=== PATIENT | female | born 1935 | race Caucasian/White ===

== ENCOUNTER 2021-01-18 08:34 | Outpatient (CLI) | payer MEDICARE, SELFPAY ==
--- NOTE | ~2021-01-18 | CT_ITS ---
EXAMINATION: CT LE RT wo con DATE: 01/18/2021 09:20 INDICATION: Bilateral primary osteoarthritis of the right knee. TECHNIQUE: High resolution computed tomography (CT) of the right lower limb from the hip through the foot was performed without intravenous contrast. Additional sagittal and coronal reconstructions were performed utilizing Conformis protocol. Automated exposure control and iterative reconstruction tech nique were employed. The dose-length product was 1436.30 mGy-cm. COMPARISON: None FINDINGS: Bone alignment is normal throughout. No fractures. Polyarticular osteoarthritis at the right knee wit h medial compartment predominance where there is moderate to severe joint space narrowing which is li zohra underestimated due to nonweightbearing imaging. There is remodeling at the central to medial asp ect of the medial tibial plateau and with subarticular sclerosis along both sides. Joint space. Small to moderate-sized marginal ossified comparison the lateral and patellofemoral compartments. Small ri ght knee joint effusion. Mild right hip osteoarthritis. Right ankle joint space appears normal. Minim al osteoarthritis at a few of the joints in the right mid and hindfoot. Small plantar calcaneal spur. Mild scattered atherosclerotic calcifications in the arteries of the right upper and lower legs. IMPRESSION: 1. Severe medial compartment predominant osteoarthritis at the right knee. Reviewed, dictated and finalized at location A.
--- NOTE | 2021-01-18 10:04 | ECG_ITS ---
Measurements Intervals [place] Rate: 63 P: 12 VT: 192 QRS: 44 QRSD: 78 T: 68 QT: 387 QTc: 397 Interpretive Statements SINUS RHYTHM BORDERLINE ST ABNORMALITY- ANTERIOR LEADS BASELINE ARTIFACT- V1 BORDERLINE ECG Electronically Signed On 01-18-2021 10:11:18 CDT by Solomon Lopez D.O.
[2021-01-18 10:11] LABS: Hematocrit 40.4 % (37.0-47.0); Hemoglobin 13.2 g/dL (12.0-15.0)
[2021-01-18 10:28] LABS: Albumin Level 4.4 g/dL (3.5-5.1)
[2021-01-19 09:30] LABS: Estimated Glomerular Filt Rate 47; Glucose 108 mg/dL (65-110)
[2021-01-19 10:25] LABS: Hemoglobin A1C 5.6 % (<5.7)
== END 2021-01-18 08:35 | disposition home or self-care (01) ==
PROVIDERS: PCP Nurse Practitioner Family; Visit Provider Orthopaedic Surgery
DX: M17.11 Unilateral primary osteoarthritis, right knee (principal); R94.31 Abnormal electrocardiogram [ECG] [EKG]
CPT/HCPCS: 36415; 73700; 82040; 82565; 82947; 83036; 85014; 85018; 93005

== ENCOUNTER 2021-03-10 13:43 | Outpatient (CLI) | payer MEDICARE, SELFPAY ==
[2021-03-10 15:09] LABS: Basophils Absolute Auto 0.1 K/mm3 (0.0-0.1); Basophils Percent Auto 0.6 % (0.2-1.2); Eosinophils Absolute Auto 0.1 K/mm3 (0-0.3); Eosinophils Percent Auto 0.7 % (0-4.4); Hematocrit 41.3 % (37.0-47.0); Hemoglobin 13.7 g/dL (12.0-15.0); Immature Granulocyte Absolute 0.02 K/mm3 (0.00-0.031); Immature Granulocyte Percent A 0.2 % (0-0.5); Lymphocytes Absolute Auto 2.24 K/mm3 (0.9-3.2); Lymphocytes Percent Auto 26.1 % (18.3-44.2); Mean Corpuscular HGB Conc 33.2 g/dl (32-36); Mean Corpuscular Hemoglobin 30.6 pg (26-34); Mean Corpuscular Volume 92.2 fl (80-100); Mean Platelet Volume 9.8 fl (7.4-10.4); Monocytes Absolute Auto 0.6 K/mm3 (0.1-0.6); Monocytes Percent Auto 7.2 % (2.6-8.5); Neutrophils Absolute Auto 5.6 K/mm3 (1.3-6.7); Neutrophils Percent Auto 65.2 % (45.5-73.1); Platelet Count Result 268 k/mm3 (150-375); Red Blood Count 4.48 M/mm3 (4.2-5.4); Red Cell Distribution Width 13.6 % (11.5-14.5); White Blood Count 8.6 K/mm3 (4.5-10.0)
[2021-03-10 15:18] LABS: Albumin Level 4.3 g/dL (3.5-5.1)
[2021-03-10 15:20] LABS: Anion Gap 7 mmol/L (8-16); Blood Urea Nitrogen 20 mg/dL (7-17); Calcium 10.2 mg/dL (8.4-10.2); Carbon Dioxide 30 mmol/L (22-30); Chloride 102 mmol/L (98-107); Estimated Glomerular Filt Rate 43; Glucose 105 mg/dL (65-110); Potassium 3.7 mmol/L (3.4-5.0); Sodium 139 mmol/L (137-145)
[2021-03-10 15:30] LABS: INR 0.9; Prothrombin Time 12.2 Seconds (11.1-14.7)
[2021-03-10 15:31] LABS: Partial Thromboplastin Time 27.1 SECONDS (22.3-36.8)
[2021-03-10 19:21] LABS: Urine Cotinine NEGATIVE
== END 2021-03-10 13:44 | disposition home or self-care (01) ==
LOC: ANHSURGERY 13:47
PROVIDERS: Anesthesiology; PCP Nurse Practitioner Family; Visit Provider Orthopaedic Surgery
DX: M17.11 Unilateral primary osteoarthritis, right knee (principal); N18.30 Chronic kidney disease, stage 3 unspecified; Z79.899 Other long term (current) drug therapy; Z01.818 Encounter for other preprocedural examination
CPT/HCPCS: 36415; 80048; 80307; 82040; 85025; 85610; 85730; 87081

== ENCOUNTER 2021-04-08 01:27 | Day surgery (SDC) | payer MEDICARE, SELFPAY ==
[2021-03-10 13:55] VITALS: BMI 33.5
[2021-03-10 14:05] VITALS: BP 186/50; PULSE 76; RESP 16; TEMP 36.9; O2SAT 100
--- NOTE | 2021-03-10 14:14 | PC.NURSE ---
Report to the Outpatient Waiting Room, entrance under the green pavilion located off [facility], at time __0600__ on date 04-08-2021_. OR Time: __729_. - You and your visitor will be asked a series of questions to screen for COVID 19 for your protection. - A mask is required within the hospital. - Only one visitor is allowed at this time. Patient visitors will be guided where to wait when not with patient. Preoperative COVID Testing Requirements: No COVID Test needed if: (proof is required; if not received patient will have Rapid Test prior to entry) - Patient has received COVID Vaccine at least 14 days prior to procedure date or - Patient has positive COVID test result within last 90 days of surgery date. COVID Test needed if above criteria is not met If not COVID vaccinated a COVID test must be conducted within 72 hours of surgery and patient is asked to isolate self from time of testing until procedure. You will go to the [employer] [facility] for your COVID testing. The [employer] [facility] site is located at the corner of [address] [facility]. You will only be called if COVID results are positive and your surgeon may reschedule your elective surgery date. Patients may have clear liquids (water, carbonated beverages, clear teas, apple juice) until 3 hours prior to surgery with a maximum of 20 ounces. - No food from midnight until time of surgery - Infants may have breast milk until 4 hours before surgery, infant formula 6 hours prior to surgery. - Children will be allowed to drink immediately following surgery. If applicable, please bring a bottle or sippy cup to assist with drinking. Juice, water, soda, and popsicles are readily available. For infants on formula, please bring formula the day of surgery. Pacifiers are allowed. Take the following medications with a SIP of water the morning of surgery: Medications to discontinue per physician __Stop all vitamins and supplements 04-05-2021.____Stop Asprin [id number] Date to take last dose Please no make-up, nail arabic, hairspray, perfume, deodorant, or body powder the day of surgery. No jewelry (including any body piercings) or valuables the day of surgery, leave them at home. Please take a shower or bath the night before, or the morning of, surgery with an antibacterial soap. Wear comfortable, loose fitting clothing. Children are encouraged to wear pajamas. - Jewelry must be removed prior to entering the operating room. Rings and piercings that are not removed may be cut off. - The hospital will not accept responsibility for valuables. - Please leave all valuables, including medications, at home the day of surgery. If you are going home after surgery, a licensed set key driver must drive you home. - NO public transportation without another adult. - We recommend that an adult stay with you for 24 hours following discharge. - We also recommend that you do not drive, make important decision, drink alcoholic beverages, or take any drugs that were not prescribed by your health care provider for at least 24 hours after your discharge time. For Pediatric surgeries, we recommend two adults accompany the child home (only one inside the building at this time). Follow any additional instructions given to you from your surgeon. Telephone instructions given to __Patient__and asked if any additional questions and then verbalized understanding. Patient advised to call surgeon office or pre surgery nurse liaison [phone] if any additional questions.
--- NOTE | 2021-04-07 14:59 | WPDANESEPPF ---
Anes - Initial Pre Proc Eval Procedure: Operation Date: 04/08/21 07:30 Proposed Procedures p Right Custom Total Knee Arthroplasty - Hu Villareal MD Date/Time: 04/07/21 14:59 Surgeon: Hu Villareal MD Pre Op Diagnosis: Adry Jansen Right Knee Patient Data Age: 85 Gender: F Height: 1.5 m Weight: 75.4 kg Last Vital Signs Temp 36.9 C 03/10/21 14:05 Pulse 76 03/10/21 14:05 Resp 16 03/10/21 14:05 BP 186/50 H 03/10/21 14:05 Pulse Ox 100 03/10/21 14:05 Allergies Allergy/AdvReac Type Severity Reaction Status Date / Time No Known Allergies Verified 03/10/21 13:58 Home Medications Medication Instructions Recorded Confirmed Type aspirin 81 mg tablet,delayed 81 mg PO DAILY 09/24/20 03/10/21 History release calcium carbonate 600 mg calcium 600 mg PO DAILY 09/24/20 03/10/21 History (1,500 mg) tablet hydrochlorothiazide 50 mg tablet 25 mg PO DAILY 09/24/20 03/10/21 History cholecalciferol (vitamin D3) 125 125 mcg PO DAILY 11/02/20 03/10/21 History mcg (5,000 unit) capsule Patient hx anesthesia problems: none Family hx anesthesia problems: none Results Review: All pre-operative results and documents have been reviewed as part of the pre-operative evaluation. [facility] Past Medical History Medical History (Updated 04/07/21 @ 15:00 by Steve Urias DO) Chronic kidney disease, stage 3 HTN (hypertension), benign Surgical History Surgical History (Updated 11/02/20 @ 08:43 by Eva Alcazar) History of cholecystectomy (~2005) History of hysterectomy (~1977) Social History Social History (Updated 09/24/20 @ 15:48 by Gabby Tran, RT(R)) Smoking status: Never smoker Alcohol intake: never Living arrangements: alone Spiritual care concerns: No Anes - Eval Final PreProcedure Day of Procedure 04/07/21 14:59 Patient weight: obese Heart: regular rate and rhythm Lungs: clear to auscultation and normal air movement Airway: Mallampati scale class II Neurological: alert and oriented Last oral intake: >/= 8 hours ASA classification: III Emergent: no Anesthetic plan: proceed Anesthesia type and monitoring: general LMA and standard monitoring Results Review: All pre-operative results and documents have been reviewed as part of the pre-operative evaluation. Informed Consent: The patient's anesthetic plan and its attendant risks and benefits were discussed with the patient/family/POA. Questions were solicited and answers provided to the satisfaction of the patient/family/POA.
--- NOTE | 2021-04-07 15:01 | WPDANESPNB ---
Anes - Peripheral Nerve Block Date/Time: 04/07/21 15:01 I have discussed with the patient/family/POA the placement of a peripheral nerve block for post-operative pain management, including associated risks, benefits, complications, and side effects. Alternative methods of post-operative analgesia were detailed. Questions were solicited and answers provided to the satisfaction of the patient/family/POA. Time-Out: A pre-procedural Time-Out was completed immediately before starting the procedure and confirmed: Patient Identification, Site, Procedure, Patient Position and the Availability of Requisite Equipment. Clinical Indications: Acute post-operative pain management requested by the operative surgeon. Nerve Block Insertion Note Anes-nerve block: adductor canal right Patient position: supine Skin prep: chlorhexidine Needle: 22 gauge, stimulating, insulated echogenic needle. Needle length: 80 mm Technique: ultrasound Injectate: bupivacaine 0.5% with epi 5 mcg/ml (30cc - no epi) Observations: tolerated well Complications: none Procedure start time:: 719 Procedure end time:: 723
[2021-04-08] VITALS (16 sets, daily range): BP systolic 124–184; BP diastolic 43–82; PULSE 66–83; RESP 12–20; TEMP 35.8–37; O2SAT 93–99; BMI 33.1
--- NOTE | ~2021-04-08 | XR_ITS ---
EXAMINATION: XR knee RT 2V DATE: 04/08/2021 10:21 INDICATION: Postoperative evaluation following right total knee arthroplasty. TECHNIQUE: Anteroposterior and lateral views of the right knee were obtained. COMPARISON: 03/10/2021 FINDINGS: Right total knee arthroplasty with patellar resurfacing appears well seated and in near anatomic alig nment. No fractures identified. Expected postoperative subcutaneous and intra-articular gas. IMPRESSION: 1. Right total knee arthroplasty, negative for postoperative purposes. Reviewed, dictated and finalized at location B. TECHNICAL SUPPORT SPECIALIST
[2021-04-08] MEDS: LACTATED RINGERS 1,000 ML 30 ML IV CONT ×2 (06:55→10:08)
[2021-04-08] MEDS: ACETAMINOPHEN 500 MG TABLET 1000 MG PO ×2 (06:57→18:29)
[2021-04-08] MEDS: TRANEXAMIC ACID 1,000MG/ISO100 1,000 MG/100 ML BAG 200 MG IVPB (07:00)
--- NOTE | 2021-04-08 07:23 | WPDHPUPDATE1 ---
History and Physical Update Update Date/Time: 04/08/21 07:23 History and Physical has been reviewed, including an updated exam of the patient. There are NO changes in the patient's condition. Risks, benefits, and alternatives have been discussed and questions answered. Patient agrees to proceed with procedure.
[2021-04-08] MEDS: ceFAZolin 2 GM/D5W 50 ML 2 GM/50 ML BAG IVPB ×2 (07:35→17:09)
[2021-04-08] MEDS: GENTAMICIN BONE CEMENT REFOBACIN 1 EACH TOPICAL (09:02)
--- NOTE | 2021-04-08 12:26 | ADMGEN ---
This patient, Gabriella Vasquez, was admitted to [facility] Surgery-11. Patient oriented to hospital policies and general routines including ID bracelet, bed and alarms, pain management, procedures, bathroom and other care routines, personal items, smoking policy, and room service/diet. Information on how to activate the Rapid Response Team has been discussed. Patient is encouraged to report perceived risks to care and to ask questions if they do not understand what they are told or what they should do.
[2021-04-08] MEDS: SODIUM CHLORIDE 0.9% IV 1,000 ML 125 ML IV CONT (13:28)
--- NOTE | 2021-04-08 15:58 | P.OP_ITS ---
Procedure Note - Detailed Date of Procedure 04/08/21 Pre-op Diagnosis Primary osteoarthritis right knee Post-op Diagnosis same Procedure Performed Total knee arthroplasty, right. Surgeon Hu Villareal MD Aviation Medicine Specialist Nirmala Kennedy PA-C Anesthesia general and regional (Subsartorial block.) Description of Procedure Physician assistant professor, Nirmala Kennedy PA-C, required for surgery; including patient positioning, draping, tissue retraction, maintaining instrument pos ition, cement removal, wound closure, and dressing placement. Preoperative antibiotics were given. The limb was prepped and draped in the usual sterile fashion with a well-padded tourniquet high on the thigh. The limb was exsanguinated and the tourniquet inflated to 300 mmHg. A longitudinal incision was created just medial to the patella. A trivector approach to the knee was performed. Arthrotomy was taken down through the joint capsule. No significant releases were initially taken. The femur was exposed and the F1 jig was applied. The coring tool was used to remove the cartilage for the F2 jig to sit flush with the bone. The jig was pinned and the distal cut carefully taken. Caliper measurements confirmed appropriate bony resections according to the preoperative templated plan. The F4 cutting jig for the femur was applied, at the standard rotation. The AP and anterior chamfer cuts were taken. The F5 jig was applied and the posterior chamfer cuts were taken. The tibia was prepared using the T1 jig, after removing cartilage for the jig contact points. Proper alignment was checked with the alignment dayo. The tibia was cut using the T1u guide. Gap balancing was performed. Gap measurements were taken and the knee was trialed. Excellent alignment and soft tissue balancing was confirmed. The posterior cruciate ligament was recessed along the proximal tibia. The patella was cut for resurfacing. Three lug holes were drilled. Meniscal remnants were removed. The trial components were assembled. Excellent range of motion and proper soft tissue balancing were confirmed throughout the full range of motion. Patellar tracking was excellent. The knee was copiously irrigated periodically throughout the procedure. The real implants were cemented into position. Excess cement was carefully removed. The wound was closed in layers with interrupted #1 Vicryl suture, 2-0 strata fix suture, 0 strata fix suture, 2-0 strata fix suture. Steri-Strips placed on the skin with the knee flexed. Sterile bulky dressing applied. The patient was brought to the recovery room in stable condition. There were no complications. Implants Conformis Custom total knee arthroplasty. Cemented. Cruciate retaining. 6B insert. 29 mm round patella. Estimated Blood Loss -50.0 Tourniquet Time 80 Drains No Complications No immediate complications Condition stable Disposition PACU
[2021-04-08] MEDS: SENNA/DOCUSATE SODIUM TABLET 2 TAB PO (17:34)
[2021-04-08] MEDS: MELOXICAM 7.5 MG TABLET PO (17:35)
[2021-04-08] MEDS: ASPIRIN 81 MG ENTERIC TABLET PO (17:35)
[2021-04-08] MEDS: FAMOTIDINE 20 MG TABLET PO (21:48)
[2021-04-09] VITALS: BP 136/49; PULSE 67; RESP 20; TEMP 35.7; O2SAT 95
[2021-04-09] MEDS: ceFAZolin 2 GM/D5W 50 ML 2 GM/50 ML BAG IVPB ×2 (00:38→08:57)
[2021-04-09] MEDS: ACETAMINOPHEN 500 MG TABLET 1000 MG PO (00:39)
[2021-04-09 06:00] VITALS: BP 120/46; PULSE 68; RESP 18; TEMP 35.5; O2SAT 96
[2021-04-09 07:55] VITALS: BP 123/41; PULSE 65; RESP 12; TEMP 36.8; O2SAT 99
--- NOTE | 2021-04-09 08:31 | P.DS_ITS ---
DS: Admitting Diagnosis Discharge Date 04/09/21 Admitting Diagnosis OA knee Right DS: Discharge Diagnosis Discharge Diagnosis (1) Status post total right knee replacement: Code(s): Z96.651 - Presence of right artificial knee joint Status: Acute Assessment and Plan: Postop day 1: Right total knee arthroplasty. Patient tolerated procedure well. No complications. Pain manageable with pain medication. No numbness or tingling. We had a lengthy discussion regarding postoperative wound care, limitations, expectations, and exercises. Patient shows good understanding. Has had initial physical therapy and is tolerating it well. DVT prophylaxis: 81 mg baby aspirin b.i.d. for 14 days. Compression socks. Short frequent walks with walker. Pain medication: Percocet. prednisone. meloxicam. Patient has followup appointment with Dr. Villareal in 3 weeks. DS: Summary Hospital Course Reason for hospitalization: Total knee arthroplasty Hospital Course: Patient tolerated procedure well. Has had initial PT/OT. No complications. Pain well managed. Status at Discharge Functional status at discharge: uses cane/walker Overall status at discharge: patient is progressing back to baseline Time Spent with Patient Time attestation: Total time spent providing and/or coordinating discharge services: Exam Narrative: overweight 85 y/o female. Resting comfortably in chair. No acute distress. A&O x3. Wearing compression socks bilaterally. Dressing intact with no drainage. Moderate swelling. Small area of ecchymosis. No erythema. No hematoma. Good early range of motion. Calf nontender. Neurologic status intact. No varicosities. Distal pulses palpable. Good quad function. Discharge Plan Discharge Patient Disposition: Home, Self-Care Discharge Instructions: See instruction sheet Stand Alone Forms: General Discharge Instructions Follow-up/Referrals: Nirmala Kennedy PA [Physician Prn Occupational Therapist] - Discharge Medications: New aspirin 81 mg tablet,delayed release (DR/EC) 81 mg PO BID 14 Days Qty: 28 RF: 0 oxycodone-acetaminophen 5-325 mg tablet 1 - 2 tablet PO Q4-6H MDD 6 PRN (Reason: pain) Qty: 30 RF: 0 meloxicam 15 mg tablet 15 mg PO DAILY Qty: 30 RF: 0 prednisone 5 mg tablet 5 mg PO DAILY 21 Days Qty: 21 RF: 0 Continued cholecalciferol (vitamin D3) 125 mcg (5,000 unit) capsule 125 mcg PO DAILY RF: 0 calcium carbonate [Calcium 600] 600 mg calcium (1,500 mg) tablet 600 mg PO DAILY RF: 0 hydrochlorothiazide 50 mg tablet 25 mg PO DAILY RF: 0 Held aspirin [Adult Low Dose Aspirin] 81 mg tablet,delayed release (DR/EC) 81 mg PO DAILY RF: 0 Hold Instructions: Resume on 04/22/21.
[2021-04-09] MEDS: SENNA/DOCUSATE SODIUM TABLET 2 TAB PO (08:57)
[2021-04-09] MEDS: MELOXICAM 7.5 MG TABLET PO (08:57)
[2021-04-09] MEDS: hydroCHLOROthiazide 25 MG TABLET PO (08:57)
[2021-04-09] MEDS: ASPIRIN 81 MG ENTERIC TABLET PO (08:57)
[2021-04-09] MEDS: polyethylene glycoL 3350 17 GM POWD.PACK PO (08:57)
[2021-04-09] MEDS: FAMOTIDINE 20 MG TABLET PO (08:57)
--- NOTE | 2021-04-09 09:55 | WPDANESPN ---
Anes - Prog Note Post-Op Date/Time: 04/09/21 09:55 Cardiovascular status: normal Respiratory status: normal Airway patency: baseline Mental status: baseline Post-Op hydration status: normal Vital Signs: Last Vital Signs Temp 36.8 C 04/09/21 07:55 Pulse 65 04/09/21 07:55 Resp 12 04/09/21 07:55 BP 123/41 L 04/09/21 07:55 Pulse Ox 99 04/09/21 07:55 Pain Score (VAS): 1 I/O: Intake & Output 04/08/21 04/09/21 04/09/21 23:59 07:59 15:59 Intake Total 600 1150 Balance 600 1150 Post-procedural complaints: none Patient Feedback: Patient satisfied with anesthetic care.
== END 2021-04-09 12:07 | disposition home or self-care (01) ==
LOC: ANHSURGERY 05:50 → ANHSUROVER 04-09 06:17
PROVIDERS: PCP Nurse Practitioner Family; Visit Provider Orthopaedic Surgery
PROC: (CPT 27447; principal; 2021-04-08 07:30)
DX: M17.11 Unilateral primary osteoarthritis, right knee (principal); G89.18 Other acute postprocedural pain; I12.9 Hypertensive chronic kidney disease with stage 1 through stage 4 chronic kidney disease, or unspecified chronic kidney disease; N18.30 Chronic kidney disease, stage 3 unspecified; Z79.82 Long term (current) use of aspirin; E66.9 Obesity, unspecified; Z68.33 Body mass index [BMI] 33.0-33.9, adult
CPT/HCPCS: 27447; 64447; 36415; 73560; 80048; 80307; 82040; 85025; 85610; 85730; 86850; 86900; 86901; 87081; 97110; 97116; 97161; 97165; 97530; 97535; A9270; C1713; C1776; J0131; J0171; J0690; J1100; J1885; J2270; J2704; J2795; J3010; J7030; J7120

== ENCOUNTER 2022-04-11 07:58 | Outpatient (CLI) | payer MEDICARE, SELFPAY ==
--- NOTE | ~2022-04-11 | XR_ITS ---
EXAMINATION: XR knee RT 3V DATE: 04/11/2022 08:15 INDICATION: One-year postoperative evaluation following right total knee arthroplasty. TECHNIQUE: AP, lateral and sunrise views of the right knee were obtained. COMPARISON: 06/11/21 FINDINGS: Again seen is a right total knee arthroplasty with patellar resurfacing which remains in near-anatomi c alignment. No periprosthetic lucency to suggest loosening or infection. No fracture. Soft tissues a re unremarkable. No right knee joint effusion. IMPRESSION: 1. No significant interval change in expected appearance of a right total knee arthroplasty. Reviewed, dictated and finalized at location A. OOD PREPARER
== END 2022-04-11 07:59 | disposition home or self-care (01) ==
PROVIDERS: Visit Provider Orthopaedic Surgery
DX: Z96.651 Presence of right artificial knee joint (principal)
CPT/HCPCS: 73562

== ENCOUNTER 2022-11-30 12:45 | Outpatient (CLI) | payer MEDICARE, SELFPAY ==
--- NOTE | 2022-11-30 14:00 | NEURO_ITS ---
Impression: # Non-diabetic complains of numbness of right hand. # Right ulnar neuropathy around the elbow. # Right Carpal Tunnel Syndrome. # Needle/EMG exam mildly abnormal. Nerve Conduction Studies Anti Sensory Summary Table Stim Site NR Peak (ms) P-T Amp (?V) Site1 Site2 Delta-P (ms) Dist (cm) Nayan (m/s) Right Median Anti Sensory (2-3nd Digit) Wrist 3.5 40.4 Wrist 2-3nd Digit 3.5 14.0 40 Wrist 3.9 31.0 Wrist 2-3nd Digit 3.5 14.0 40 Right Radial Anti Sensory (Base 1st Digit) Wrist 2.7 21.9 Wrist Base 1st Digit 2.7 0.0 Right Ulnar Anti Sensory (5th Digit) Wrist 2.5 39.6 Wrist 5th Digit 2.5 14.0 56 Motor Summary Table Stim Site NR Onset (ms) O-P Amp (mV) Site1 Site2 Delta-0 (ms) Dist (cm) Nayan (m/s) Right Median Motor (Abd Poll Brev) Wrist 4.6 1.5 Elbow Wrist 4.2 24.0 57 Elbow 8.8 3.0 Right Ulnar Motor (Abd Dig Minimi) Wrist 2.2 7.3 A Elbow Wrist 5.4 25.0 46 A Elbow 7.6 3.1 B Elbow Wrist 3.8 18.0 47 B Elbow 6.0 2.9 F Wave Studies NR F-Lat (ms) L-R F-Lat (ms) Right Median (Mrkrs) (Abd Poll Brev) 25.50 Right Ulnar (Mrkrs) (Abd Dig Min) 26.08 EMG Side Muscle Nerve Root Ins Act Fibs Amp Dur Recrt Comment Right 1stDorInt Ulnar C8-T1 Nml Nml Nml Nml Reduced Right Ext Indicis Radial (Post Int) C7-8 Nml Nml Nml Nml Nml Right Ext Digitorum Radial (Post Int) C7-8 Nml Nml Nml Nml Nml Right BrachioRad Radial C5-6 Nml Nml Nml Nml Nml Right PronatorTeres Median C6-7 Nml Nml Nml Nml Nml Right Abd Poll Brev Median C8-T1 Nml Nml Nml Nml Reduced MTDD
== END 2022-11-30 12:46 | disposition home or self-care (01) ==
LOC: ANHNEURO 12:46
PROVIDERS: Visit Provider Pediatrics
DX: R29.898 Other symptoms and signs involving the musculoskeletal system (principal); G56.01 Carpal tunnel syndrome, right upper limb; G56.21 Lesion of ulnar nerve, right upper limb
CPT/HCPCS: 95886; 95909